=== PATIENT | female | born 1995 | race Two or more races ===

== ENCOUNTER 2016-06-13 01:48 | Emergency (ER) | payer MEDICAID ==
[~2016-06-13] VITALS: Ht 165.1 cm; Wt 96.2 kg
[2016-06-13 02:49] LABS: *URINE HCG, QUAL NEGATIVE (NEGATIVE)
--- NOTE | 2016-06-13 04:00 | NUR ---
Patient complains of severe pain to right foot. XRAYS indicate fractures at that location. Patient crying in room, requesting medication for pain. ERMD notified. ERMD stated that patient could not have medication for pain because not all XRAYS have been read. Patient and her mother notified.
--- NOTE | 2016-06-13 04:06 | NUR ---
ERMD notified that all CT and XRAY results are back. No new orders at this time.
[2016-06-13] MEDS ORDERED: HYDROCODONE/APAP 10-325 MG TABLET PO ONE (04:15)
[2016-06-13] MEDS ORDERED: ONDANSETRON ODT 4 MG TAB.RAPDIS SL ONE (04:15)
[2016-06-13] MEDS ORDERED: ONDANSETRON ODT 4 MG TAB.RAPDIS ONE (04:20)
[2016-06-13] MEDS ORDERED: HYDROCODONE/APAP 10-325 MG TABLET ONE (04:20)
--- NOTE | 2016-06-13 05:12 | NUR ---
Patient discharged to home in stable conditon. Written and verbal after care instructions given. Patient verbalizes understanding of instructions.
== END 2016-06-13 05:13 | disposition home or self-care (01) ==
LOC: ER 01:53
DX: S82.891A Other fracture of right lower leg, initial encounter for closed fracture (principal); M54.2 Cervicalgia; J45.909 Unspecified asthma, uncomplicated; M25.561 Pain in right knee; M79.602 Pain in left arm; M79.641 Pain in right hand; V43.52XA Car driver injured in collision with other type car in traffic accident, initial encounter; W22.10XA Striking against or struck by unspecified automobile airbag, initial encounter; Y93.89 Activity, other specified; Y99.8 Other external cause status; Y92.89 Other specified places as the place of occurrence of the external cause
CPT/HCPCS: 72125; 73060; 73130; 73502; 73560; 73610; 73630; 84703; A4663; Q0162